=== PATIENT | male | born 1950 | race Caucasian/White ===

== ENCOUNTER 2025-05-13 13:53 | Emergency (ER) | payer MEDICARE, SELFPAY ==
[2025-05-13 14:01] VITALS: BP 154/77; RESP 21
[2025-05-13 14:02] VITALS: BP 161/89; PULSE 60; RESP 18; TEMP 36.7; O2SAT 98; BMI 39.1
--- NOTE | 2025-05-13 14:08 | CT_ITS ---
FINAL REPORT TECHNIQUE: Thin section axial images were obtained from skull base to vertex without contrast. Coronal reconstruction images were obtained from the axial data. Exam was performed using dose reduction techniques such as automated exposure control, adjustment of the mA and kV according to patient size, and use of iterative reconstruction technique. CLINICAL HISTORY: lawnmower rollover, TRAUMA COMPARISON: none FINDINGS: There is no mass effect or midline shift. There is no hydrocephalus. There is no intracranial hemorrhage. The posterior fossa is without acute abnormality. The basilar cisterns are preserved. The soft tissues are without acute abnormality. No acute osseous abnormality is identified. IMPRESSION: No acute intracranial abnormality. Reviewed, Interpreted and Dictated by Barb Peres MD Transcribed by Ekta Palacios Authenticated and [facility]
--- NOTE | 2025-05-13 14:08 | CT_ITS ---
FINAL REPORT TECHNIQUE: Thin section axial images were obtained through the thoracic spine without contrast. Sagittal and coronal images were obtained from the axial data. CLINICAL HISTORY: lawnmower rollover COMPARISON: None FINDINGS: There is normal alignment of the thoracic vertebral bodies. Mild compression deformity at the superior endplate of T1 is age indeterminate but favored to be chronic. Remaining vertebral body heights are preserved. There is mild multilevel degenerative disc disease. Bridging osteophytes are noted throughout the thoracic spine. No acute paraspinal abnormality. IMPRESSION: Degenerative disc disease. Age-indeterminate T1 compression deformity, favored chronic. Reviewed, Interpreted and Dictated by Barb Peres MD Transcribed by Ekta Palacios Authenticated and [facility]
--- NOTE | 2025-05-13 14:08 | CT_ITS ---
FINAL REPORT TECHNIQUE: Thin section axial images were obtained through the lumbar spine without contrast. Sagittal and coronal reconstruction images were obtained from the axial data. Exam was performed using dose reduction techniques. CLINICAL HISTORY: lawnmower rollover COMPARISON: None FINDINGS: There is no acute fracture or acute malalignment of the lumbar spine. Vertebral body height is preserved. There is mild multilevel degenerative disease with disc space narrowing and osteophyte formation. There is no significant central stenosis. IMPRESSION: No acute abnormality of the lumbar spine. Mild multilevel degenerative disease. Reviewed, Interpreted and Dictated by Barb Peres MD Transcribed by Ekta Palacios Authenticated and [facility]
--- NOTE | 2025-05-13 14:09 | XR_ITS ---
FINAL REPORT CLINICAL HISTORY: Trauma. lawnmower rollover FINDINGS: A portable view of the chest is obtained. There is no prior exam for comparison. Cardiac and mediastinal silhouettes are normal. Left basilar opacity could be pneumonia but contusion not excluded. There is no pleural effusion or pneumothorax. IMPRESSION: Left basilar opacity. Reviewed, Interpreted and Dictated by Barb Peres MD Transcribed by Ekta Palacios Authenticated and . [facility]
--- NOTE | 2025-05-13 14:09 | XR_ITS ---
FINAL REPORT CLINICAL HISTORY: Trauma. lawnmower rollover FINDINGS: SINGLE VIEW PELVIS: A single view of the pelvis was obtained. There is no prior exam for comparison. There is no acute fracture of the pelvis. Degenerative disease is noted of the hips bilaterally, [id number]. No acute soft tissue abnormality identified. IMPRESSION: No acute osseous abnormality. Reviewed, Interpreted and Dictated by Barb Peres MD Transcribed by Ekta Palacios Authenticated and . [facility]
[2025-05-13] MEDS: FENTANYL 250MCG/5ML VIAL 50 MCG IV (14:10)
--- NOTE | 2025-05-13 14:10 | XR_ITS ---
FINAL REPORT TECHNIQUE: 4 views left shoulder CLINICAL HISTORY: Trauma. lawnmower rollover COMPARISON: None FINDINGS: Four views of the left shoulder were obtained. There is no fracture or dislocation. The humeral head is high riding, which may indicate a rotator cuff abnormality. Soft tissues are unremarkable. IMPRESSION: No acute osseous abnormality of the left shoulder. Humeral head is high riding, which may indicate a rotator cuff abnormality. Reviewed, Interpreted and Dictated by Barb Peres MD Transcribed by Dalila Adams Authenticated and [facility]
--- NOTE | 2025-05-13 14:10 | CT_ITS ---
FINAL REPORT TECHNIQUE: Thin section axial images were obtained through the cervical spine without contrast. Multiplanar reconstruction images were obtained from the axial data. Exam was performed using dose reduction techniques. CLINICAL HISTORY: Trauma. FLIPPED ZERO TURN MOWER COMPARISON: None FINDINGS: There is no acute fracture or acute malalignment of the cervical spine. There is no evidence of unilateral or bilateral facet lock. Multilevel degenerative disc disease is most pronounced at C5-6.. Craniocervical junction is intact. No acute paraspinal abnormality is identified. IMPRESSION: No acute osseous abnormality of the cervical spine. Degenerative disc disease. Reviewed, Interpreted and Dictated by Barb Peres MD Transcribed by Ekta Palacios Authenticated and [facility]
--- NOTE | 2025-05-13 14:10 | XR_ITS ---
FINAL REPORT TECHNIQUE: Left humerus 2 views CLINICAL HISTORY: Trauma. lawnmower rollover COMPARISON: None FINDINGS: LEFT HUMERUS: Two images of the left humerus were obtained. There is no evidence of fracture or dislocation. The joint spaces are intact. There is no soft tissue abnormality identified. IMPRESSION: No acute bony abnormality. Reviewed, Interpreted and Dictated by Barb Peres MD Transcribed by Dalila Adams Authenticated and [facility]
[2025-05-13 14:11] VITALS: BP 161/89; PULSE 60; RESP 18; TEMP 36.9; O2SAT 98
[2025-05-13] MEDS: ONDANSETRON 4MG/2ML VIAL 4 MG IV (14:11)
--- NOTE | 2025-05-13 14:13 | CT_ITS ---
FINAL REPORT TECHNIQUE: Thin section axial images were obtained from the lung apices through the upper abdomen without contrast. This study was performed with techniques to keep radiation doses as low as reasonably achievable (ALARA). Individualized dose reduction techniques using automated exposure control or adjustment of mA and/or kV according to the patient's size were employed. CLINICAL HISTORY: Trauma COMPARISON: None FINDINGS: There is no axillary lymphadenopathy. There is a mildly enlarged subcarinal node measuring 31 mm, likely reactive. No hilar adenopathy is present. No pleural or pericardial effusion. There are patchy nodular opacities in the left lower lobe, favored pneumonia, although aspiration is not excluded. There are also small ground glass opacities in the right upper lobe. There is no acute osseous abnormality. IMPRESSION: 1. Patchy nodular opacities in the left lower lobe, favor pneumonia, although aspiration is not excluded. There are also small ground glass opacities in the right upper lobe. 2. Mildly enlarged subcarinal node measuring 31 mm in size, likely reactive. Reviewed, Interpreted and Dictated by Barb Peres MD Transcribed by Dalila Adams Authenticated and . [facility]
--- NOTE | 2025-05-13 14:13 | CT_ITS ---
FINAL REPORT TECHNIQUE: Thin section axial images were obtained from the lung bases to the pubic symphysis without IV contrast. Coronal and sagittal reconstruction images were obtained from the axial data. Exam was performed using dose reduction technique. CLINICAL HISTORY: Trauma COMPARISON: None FINDINGS: There are no renal or ureteral stones. There is no hydronephrosis or perinephric stranding. There is a 30 mm hypodense focus in the right kidney that likely represents a cyst. The remaining unenhanced solid abdominal organs are unremarkable. There is no evidence of small bowel obstruction. The appendix is normal. GI tract is without acute abnormality. There is no lymphadenopathy or ascites. No acute osseous abnormality is identified. IMPRESSION: No acute abnormality of the abdomen or pelvis is identified. Reviewed, Interpreted and Dictated by Barb Peres MD Transcribed by Dalila Adams Authenticated and [facility]
[2025-05-13 14:16] LABS: Hematocrit 42.0 % (42.0-52.0); Hemoglobin 14.0 g/dL (14.1-18.0); Immature Granulocytes % 0.2 %; Mean Corpuscular HGB Conc 33.3 g/dL (31.8-35.4); Mean Corpuscular Hemoglobin 28.6 pg (27.0-31.2); Mean Corpuscular Volume 85.7 fl (80-94); Nucleated Red Blood Cells % 0 %; Platelet Count 164 K/mm3 (142-424); Red Blood Count 4.90 M/mm3 (4.60-6.20); Red Cell Distribution Width-SD 40.1 fL; White Blood Count 6.3 K/mm3 (4.8-10.8)
--- NOTE | 2025-05-13 14:17 | ED_ITS ---
<Statement entered by Cristina Shi MD - 05/14/25 08:57> I was consulted by the IMELDA, and we discussed the complexity of the problems being addressed. I approved the treatment and management plan for this patient's care in the emergency department, thus performing a substantive portion of the medical decision making. Cristina Shi MD, GRACE, FACEP <Statement entered by Dao Vazquez MD - 05/13/25 18:15> I was consulted by the IMELDA, and we discussed the complexity of the problems being addressed. I approve the treatment and management plan for this patient's care in the emergency department, thus performing a substantive portion of the medical decision making. Dao Vazquez MD Discharge Plan Disposition Patient Disposition: Home, Self-Care Condition: Good Prescriptions Prescriptions: New methocarbamol 750 mg tablet 750 mg PO HS Qty: 14 0RF Referrals Follow up/Referrals: Provider,Referral, [Primary Care Provider, Medical] - See instructions Activity Restrictions/Add. Instructions Additional Instructions/Restrictions: Please return to the emergency department with any worsening signs or symptoms. Please follow-up with your primary care doctor in the upcoming days/weeks. Please take your muscle relaxer anti-inflammatory medications as needed at home. Clinical Impressions Clinical Impression: Cervicalgia, Contact with powered lawnmower as cause of accidental injury, Injury of left shoulder Instructions Patient Instructions: DI for Rotator Cuff Injury, DI for Shoulder Pain, DI for Neck Pain Print Language Print Language: Urugu[place] Discharge ED Provider: Cristina Shi General Adult HPI General Chief complaint: Trauma Stated complaint: AO-05/13/25-neck pain Time Seen by Provider: 05/13/25 13:56 Mode of Arrival: Wheelchair Limitations: No Limitations Description of Symptoms (Recalled from ER Triage Doc. by RN): Reports a zero turn mower flipped on top of him. Complaint of left sided ear, neck and shoulder pain. Also complains of lower mid back pain. History of Present Illness HPI narrative: 75-year-old male presents to the emergency department with a chief complaint of neck pain, left-sided shoulder pain and lower to mid back pain, patient states that he was attempting to move his 0 turn lawnmower, on an embankment when it rolled over on top of me , patient was pinned by the mower for several minutes before his son was able to get it off him, unfortunately [employer] was not engaged, patient denies any LOC, admits to striking the head, denies any fever chills chest pain shortness of breath no nausea no vomiting no constipation no diarrhea no abdominal pain, no urinary symptomatology, no saddle anesthesia, no urinary bladder or bowel dysfunction, no other upper or lower extremity injury, no numbness or tingling or radicular type symptomatology. Patient is a non-smoker denies any alcohol or drug use, other past medical history consistent with hypertension. Initial triage vitals are unremarkable. Please note that above description of symptoms, in this electronic medical record under categorization of recalled from ER triage doctor by RN are reflective of an initial nursing assessment, however, is not reflective of my full history and physical exam that was personally taken and clarified. Consequentially, this preceding description of symptoms, which may include the patient's categorized chief complaint in the EMR, do not reflect my personal clinical impression, and the ultimate description of history of present illness and patient stated complaints should be deferred to this section of the note. Unless stated otherwise or congruent with this section of the note, additional signs, symptoms, or incongruence should be interpreted as inaccurate with my clinical impression. Onset (ago): hour(s) Related Data Previous Rx's ?Medication ?Instructions ?Recorded methocarbamol 750 mg tablet 750 mg PO HS #14 tabs 04/21 10/12 Allergies Allergy/AdvReac Type Severity Reaction Status Date / Time Iodinated Contrast Media Allergy Unknown Verified 05/13/25 14:07 (Contrast) allergy reaction IV dye Allergy Unknown Uncoded 05/13/25 14:07 allergy reaction PFSH [facility], [facility] Disclaimer: The information contained in this section may have been updated after the patient was seen, as this information can be updated by other users. Social History Smoking Status: Never smoker alcohol intake: former current occupational status: other Travel in the last 8 weeks?: None ROS Obtained: Yes All systems reviewed & no additional complaints except as documented Physical Exam General General appearance: alert and in no apparent distress Head Head exam: atraumatic and normocephalic Eye Eye exam: Present PERRL and EOMI ENT ENT exam: Present mucous membranes moist Neck Neck exam: Present tenderness; Absent normal inspection or full ROM Chest Chest inspection: Present normal inspection and symmetric chest wall rise; Absent tenderness Respiratory Respiratory exam: Present normal lung sounds bilaterally; Absent respiratory distress Cardiovascular Cardiovascular exam: Present regular rate and normal rhythm Abdominal Exam Abdominal exam: Present soft; Absent tenderness, guarding, rebound, rigidity or trauma Extremities Exam Extremities exam: Present normal inspection, tenderness and other (Pain with palpation to the left shoulder joint some pain limited range of motion, pelvis is stable to AP and lateral compression, no other obvious open fracture or traumatic dislocation, otherwise neurovascular intact); Absent full ROM Back Exam Back exam: Present normal inspection, tenderness, paraspinal tenderness and vertebral tenderness; Absent full ROM Comment: Paraspinal and spinal tenderness to the cervical spine, lower lumbar spine, and some paraspinal tenderness to the mid thoracic spine. No spinal tenderness to the thoracic spine no step-offs or deformity Neurological Exam Neurological exam: Present alert, oriented X3 and other (5-5 strength in the bilateral lower and upper extremities, moves extremities to command, no gross sensation deficit or neurological focal deficit) Psychiatric Psychiatric exam: Present normal affect Skin Skin exam: Present warm and dry Medical Decision Making Medical Records Medical records reviewed: Yes I reviewed the patient's medical records. Screening: Per USPSTF and CDC recommendations, given the prevalence of disease in our region, it is our hospital?s policy to screen for HIV and viral Hepatitis for all patients aged 18 and over and those with ongoing risk factors. Oscar Inquiry Pt receiving controlled substance: Yes Oscar was queried for this patient: No Reason not queried -: Emergent pt cond-no time Risks and benefits of using a controlled substance: were discussed with pt by me Vital Signs: 05/13/25 14:01 05/13/25 14:02 05/13/25 14:11 Temperature 98.1 F 98.4 F Temperature Source Oral Oral Pulse Rate [Radial] 60 60 Respiratory Rate 21 18 18 Blood Pressure 154/77 H Blood Pressure [Right Arm] 161/89 H 161/89 H Blood Pressure Mean [Right Arm] 113 113 Blood Pressure Source [Right Arm] Automatic Cuff Automatic Cuff Blood Pressure Position [Right Arm] Sitting Sitting 02 Sat by Pulse Oximetry 98 98 Oxygen Delivery Method Room Air Room Air Lab Data Lab results reviewed: Yes I reviewed the patient's lab results. Lab Results 05/13/25 14:07: WBC 6.3, RBC 4.90, Hgb 14.0 L, Hct 42.0, MCV 85.7, MCH 28.6, MCHC 33.3, RDW 12.9, Plt Count 164, MPV 10.7 H, Neut % (Auto) 60.7, Lymph % (Auto) 27.9, [place] % (Auto) 8.4, Eos % (Auto) 2.2, Baso % (Auto) 0.6, Neut # (Auto) 3.9, Lymph # (Auto) 1.8, [place] # (Auto) 0.5, Eos # (Auto) 0.1, Baso # (Auto) 0.0, Sodium 140, Potassium 4.1, Chloride 105, Carbon Dioxide 24, Anion Gap 15.1 H, BUN 17, Creatinine 1.00, Estimated Creat Clear 109, Estimated GFR 73, Est GFR ( Amer) 88, Glucose 105 H, Calcium 9.0, Total Bilirubin 0.4, AST 27, ALT 17, Alkaline Phosphatase 69, Total Creatine Kinase 58, Total Protein 7.7, Albumin 4.2, Globulin 3.5 H, Albumin/Globulin Ratio 1.2 05/13/25 14:07 05/13/25 14:07 Orders (Tests/Meds): ED MEDICATIONS Discontinued Medications Generic Name Dose Route Start Last Admin Trade Name Freq PRN Reason Stop Dose Admin Fentanyl Citrate 50 mcg 05/13/25 14:09 05/13/25 14:10 Fentanyl 250mcg/5ml Vial IV 05/13/25 14:10 50 mcg ONCE ONE Administration Ondansetron HCl 4 mg 05/13/25 14:09 05/13/25 14:11 Ondansetron 4mg/2ml Vial IV 05/13/25 14:10 4 mg ONCE ONE Administration ORDERS Category Date Time Status CT abdomen pelvis wo con Stat Cat Scan 05/13/25 14:[address] cervical spine wo con Stat Cat Scan 05/13/25 14:[address] chest wo con Stat Cat Scan 05/13/25 14:[address] head/brain wo con Stat Cat Scan 05/13/25 14:[address] lumbar spine wo con Stat Cat Scan 05/13/25 14:[address] thoracic spine wo con Stat Cat Scan 05/13/25 14:08 Completed POCUS Point of Care (ER Only) Stat Exams 05/13/25 14:04 Completed Pelvis XR 1-2 views [XR pelvis 1-2V] Stat Exams 05/13/25 14:09 Completed XR chest portable Stat Exams 05/13/25 14:09 Completed XR humerus LT Stat Exams 05/13/25 14:10 Completed XR shoulder LT min 2V Stat Exams 05/13/25 14:10 Completed CK [Creatine Kinase] Stat Lab 05/13/25 14:07 Completed Complete Blood Count Auto Diff Stat Lab 05/13/25 14:07 Completed Comprehensive Metabolic Panel Stat Lab 05/13/25 14:07 Completed Medical Decision Narrative: 75-year-old male presents emergency department as a trauma alert, differential diagnose include but not limited to, cervicalgia, C-spine fracture, T-spine fracture, thoracic myofascial sprain, crush injury, lumbar spine fracture, acute lumbar sacral strain, acute SDH, traumatic SAH, acute shoulder impingement syndrome, shoulder fracture, strain/sprain, other soft tissue injury, hematoma/contusion, among others. I discussed this patient's case with the attending physician Dr. Shi he saw and examined the patient as well. I also discussed this patient's case with Dr. Vazquez of the attending physician at shift change. Will obtain basic laboratory studies, E-FAST exam, CXR, left humerus x-ray, left shoulder x-ray, pelvic x-ray, basic laboratory studies, creatinine kinase level, CT cervical spine, CT thoracic spine, CT lumbar spine without contrast, opted for angiogram/full trauma scans however patient has anaphylactic reaction/allergy to IV contrast dye patient states he has nausea vomiting and difficulty breathing, thus will obtain Noncon studies of the CT chest and CT abdomen pelvis without contrast. Will give 50 mcg IV fentanyl and 4 mg IV Zofran for pain and nausea. E-FAST is negative per myself and attending physician. Limited EFAST ultrasound Indication: [Blunt trauma] Views: [LUQ, RUQ, Pelvis, Limited Cardiac, Limited Thoracic] Interpretation: Peritoneal Free Fluid: [absent] Pericardial effusion: [absent] Right thoracic free Fluid: [absent] Left thoracic Free Fluid: [absent] Right lung pneumothorax: [absent] Left Lung pneumothorax: [absent] Impression: [negative] EFAST ultrasound Images [were saved] to permanent archive The study [was] technically adequate CPT 32235-96 (limited cardiac) 33861-86 (limited abdominal) 49334-58 (chest) This study was performed by me, and I personally interpreted all images/videos. Based on my clinical judgement, these images were [adequate/inadequate] and [did/did not] necessitate further imaging. CBC unremarkable CMP is unremarkable I reviewed the patient's CT head without contrast along the corresponding radiologic report, no acute intracranial abnormality I reviewed the patient's pelvic x-ray along the corresponding radiologic report, no acute osseous abnormality, I reviewed the patient's chest x-ray along the corresponding radiologic report left basilar opacity. I reviewed the patient's CT cervical spine without contrast and with corresponding radiologic report, no acute osseous abnormality the cervical spine degenerative disc disease, I reviewed the patient's CT thoracic spine without contrast and with corresponding radiologic report, did not disc disease age-indeterminate T1 compression deformity favored chronic. I reviewed the patient's CT lumbar spine without contrast along the corresponding radiologic report, no acute abnormality lumbar spine mild multilevel degenerative disc disease. I reviewed the patient's CT chest without contrast along the corresponding radiologic report, patchy nodular opacities in the left lobe favor pneumonia although aspiration is not excluded there are also small ground glass opacities right upper lobe, mildly enlarged subcarinal node measuring 31 mm in size likely reactive. I reviewed the patient's left shoulder x-ray along the corresponding radiologic report, no acute osseous abnormality left shoulder humeral head is high riding which may indicate a rotator cuff abnormality. Reviewed the patient's humerus x-ray along the corresponding radiologic report, no acute bony abnormality. I reviewed the patient's CT abdomen pelvis without contrast along the corresponding radiologic report, no acute abnormality of the abdomen or pelvis is identified. Reexamination the patient at approximately 4:15 PM, patient is resting comfortably in the bed, still has some soreness of his left side of his neck/left shoulder discussed all results with patient family the bedside, clinically cleared the patient's c-collar at the bedside, recommend strict ED return precautions and follow-up with PCP in the upcoming days/weeks. Patient is focally neurologically intact, negative Joaquina sign bilaterally, good strength in the bilateral lower and upper extremities. I recommend anti- inflammatory medication as needed for symptomatic relief, concussive protocol, I will prescribe the patient 750 methocarbamol p.o. as needed for symptomatic relief. Patient and family voiced understanding and agreement with the current discharge plan/treatment plan. Critical Care Critical Care Time Critical Care Time: No
[2025-05-13 14:19] LABS: Albumin Level 4.2 g/dl (3.5-5.0); Chloride 105 mmol/L (98-107)
[2025-05-13 14:20] LABS: Potassium 4.1 mmoL/L (3.5-5.1); Sodium 140 mmol/L (136-145)
[2025-05-13 14:22] LABS: Alanine Aminotransferase 17 U/L (12-78); Albumin/Globulin Ratio 1.2 (1.1-1.8); Alkaline Phosphatase 69 U/L (38-126); Anion Gap 15.1 mEq/L (5-15); Aspartate Amino Transferase 27 U/L (17-59); Bilirubin,Total 0.4 mg/dl (0.2-1.3); Blood Urea Nitrogen 17 mg/dl (9-20); Carbon Dioxide 24 mmol/L (22.0-30.0); Creatinine Clearance Estimated 109 mL/min (50-200); Creatinine,Serum 1.00 mg/dl (0.66-1.25); Estimated Glomerular Filt Rate 73 ml/min (>60); GFR (African American) 88 ML/MIN (>60); Globulin 3.5 g/dL (1.3-3.2); Total Protein,Serum 7.7 g/dl (6.3-8.2)
[2025-05-13 14:23] LABS: Calcium 9.0 mg/dl (8.4-10.2); Creatine Kinase 58 U/L (55-170); Glucose 105 mg/dl (74-100)
--- NOTE | 2025-05-13 16:18 | PC.NURSE ---
Patient asked that the ligh be turned down.
[2025-05-13 16:41] VITALS: BP 144/74; PULSE 52; RESP 14; TEMP 36.6; O2SAT 95
== END 2025-05-13 17:01 | disposition home or self-care (01) ==
PROVIDERS: Physician Assistant; Emergency Provider Student in an Organized Health Care Education/Training Program
DX: M54.2 Cervicalgia (principal); M25.512 Pain in left shoulder; W28.XXXA Contact with powered lawn mower, initial encounter
CPT/HCPCS: 70450; 71045; 71250; 72125; 72128; 72131; 72170; 73030; 73060; 74176; 80053; 82550; 85025; 96374; 96375; 99285; J2405; J3010